=== PATIENT | female | born 1950 | race Caucasian/White ===

== ENCOUNTER 2017-06-07 10:58 | Emergency (ER) | payer OTHER ==
--- NOTE | 2017-06-07 12:48 | RAD ---
HISTORY: Pain in calf COMPARISONS: November 06, 2013 TECHNIQUE: Multiple transverse and longitudinal ultrasound images were obtained of the left lower extremity from the level of the common femoral vein inferiorly through to the infrapopliteal veins using grayscale, color Doppler, and spectral Doppler imaging with and without compression and with augmentation. Comparison images were obtained of the contralateral common femoral vein. FINDINGS: VEINS: The venous system of the left lower extremity is compressible throughout its course, with normal flow on color Doppler imaging and normal response to augmentation on spectral Doppler imaging. SOFT TISSUES: Unremarkable. OTHER FINDINGS: None. IMPRESSION: NO LEFT LOWER EXTREMITY DEEP VEIN THROMBOSIS
[2017-06-07 13:47] VITALS: BP 142/79
--- NOTE | 2017-06-07 16:20 | ED ---
Lower Extremity - HPI Summary HPI Summary: Patient presents to the ED with left calf pain. Hx of DVT in the left leg and states feels similar. Recent travel x 5 hours in airplane. Denies SOB. Denies other symptoms. Denies injury to the leg including trauma or straining. First noticed pain x 2 days ago as she was walking upstairs. Denies fevers, sweats or chills. Denies OCP use or smoking. Past DVT treated with warfarin. No DVT x over 1 year. - History of Current Complaint Chief Complaint: EDExtremityLower Stated Complaint: LT LEG PAIN Time Seen by Provider: 06/07/17 11:12 Hx Obtained From: Patient Mechanism Of Injury: Unknown Onset of Pain: Immediate Onset/Duration: Hours Severity Initially: Moderate Severity Currently: Moderate Pain Intensity: 3 Pain Scale Used: 0-10 Numeric Timing: Constant Location: Is Discrete @ - left calf pain Aggravating Factor(s): Standing, Ambulation Alleviating Factor(s): Rest Able to Bear Weight: No - Risk Factors Gout Risk Factors: Negative DVT Risk Factors: Negative Septic Arthritis Risk Factor: Negative - Allergies/Home Medications Allergies/Adverse Reactions: Allergies Allergy/AdvReac Type Severity Reaction Status Date / Time PABA Derivatives Allergy Rash And Verified 11/06/13 12:39 Itching PMH/Surg Hx/FS Hx/Imm Hx Previously Healthy: Yes Endocrine/Hematology History: Reports: Hx Diabetes - PT STATES SHE IS A BORDERLINE DIABETIC Cardiovascular History: Reports: Hx Hypertension, Other Cardiovascular Problems/ Disorders - OCC ANKLE SWELLING GI History: Reports: Hx Gastroesophageal Reflux Disease - TAKES OTC PEPCID Musculoskeletal History: Reports: Hx Arthritis - KNEES, Hx Rheumatoid Arthritis - PT HAS ARTHRITIS/ NOT SURE WHAT TYPE Sensory History: Reports: Hx Contacts or Glasses Denies: Hx Hearing Aid Opthamlomology History: Reports: Hx Contacts or Glasses Neurological History: Reports: Other Neuro Impairments/Disorders - POLYNEUROPATHY LOWER LEGS/ FEET - Surgical History Surgery Procedure, Year, and Place: 1971 [facility] - [place]. [facility] Hx Anesthesia Reactions: Yes - SEVERE N/V AFTER [facility] SURG Infectious Disease History: Yes Infectious Disease History: Denies: Traveled Outside the [place] in Last 30 Days - Social History Occupation: Unemployed Lives: With Family Alcohol Use: Occasionally Hx Substance Use: No Substance Use Type: Reports: None Hx Tobacco Use: No Smoking Status (MU): Never Smoked Tobacco Review of Systems Constitutional: Negative Negative: Fever, Chills, Fatigue Eyes: Negative Cardiovascular: Negative Negative: Shortness Of Breath, Cough Gastrointestinal: Negative Positive: no symptoms reported, see HPI Positive: Myalgia - right calf pain Skin: Negative Psychological: Normal All Other Systems Reviewed And Are Negative: Yes Physical Exam Triage Information Reviewed: Yes Vital Signs On Initial Exam: Initial Vitals Temp Pulse Resp BP Pulse Ox 97.7 F 89 19 160/85 100 06/07/17 11:04 06/07/17 11:04 06/07/17 11:04 06/07/17 11:04 06/07/17 11:04 Vital Signs Reviewed: Yes Appearance: Positive: Well-Appearing, Well-Nourished Skin: Positive: Warm, Skin Color Reflects Adequate Perfusion Head/Face: Positive: Normal Head/Face Inspection Eyes: Positive: EOMI, LOUISA, Conjunctiva Clear Respiratory/Lung Sounds: Positive: Clear to Auscultation, Breath Sounds Present Cardiovascular: Positive: Normal, RRR, Pulses are Symmetrical in both Upper and Lower Extremities Musculoskeletal: Positive: Pain @ - right calf and posterior knee Neurological: Positive: Speech Normal Psychiatric: Positive: Normal Diagnostics - Vital Signs Vital Signs Temp Pulse Resp BP Pulse Ox 06/07/17 13:46 79 17 142/79 94 06/07/17 13:00 79 93 06/07/17 12:34 79 94 06/07/17 12:00 81 148/87 93 06/07/17 11:44 84 94 06/07/17 11:42 144/87 06/07/17 11:04 97.7 F 89 19 160/85 100 - Laboratory Lab Statement: Any lab studies that have been ordered have been reviewed, and results considered in the medical decision making process. Lower Extremity Course/Dx - Course Course Of Treatment: right calf pain with posterior knee pain. history of blood clots. IMPRESSION: NO LEFT LOWER EXTREMITY DEEP VEIN THROMBOSIS. Currently takes advil at baseline. Patient will continue heat, ibuprofen and follow up with PCP. - Diagnoses Differential Diagnosis/HQI/PQRI: Positive: DVT Provider Diagnoses: Muscle strain of right lower leg Discharge - Discharge Plan Condition: Stable Disposition: HOME Prescriptions: Cyclobenzaprine TAB* [Flexeril TAB*] 10 mg PO BID PRN #10 tab PRN Reason: Pain Patient Education Materials: Muscle Strain (ED) Referrals: Jenni Woodson MD [Primary Care Provider] - Additional Instructions: Ibuprofen 600mg three times daily ELEVATE HEAT
== END 2017-06-07 13:47 | disposition home or self-care (01) ==
LOC: ED 10:58
DX: S86.911A Strain of unspecified muscle(s) and tendon(s) at lower leg level, right leg, initial encounter (principal); X58.XXXA Exposure to other specified factors, initial encounter; Y93.9 Activity, unspecified; Y92.9 Unspecified place or not applicable; Z86.718 Personal history of other venous thrombosis and embolism; R73.03 Prediabetes; I10 Essential (primary) hypertension; K21.9 Gastro-esophageal reflux disease without esophagitis; M17.0 Bilateral primary osteoarthritis of knee
CPT/HCPCS: 99281

== ENCOUNTER 2021-05-01 09:04 | Observation (INO) ==
[~2021-05-01 09:04] MED LIST: Buffered Lidocaine 1% SYRIN 1 ml INTRADERM ONE; Lactated Ringers 1000 ml BAG 1,000 ML IV SCH
[2021-05-01] MEDS ORDERED: Buffered Lidocaine 1% SYRIN 1 ml INTRADERM ONE (09:29)
[2021-05-01] MEDS ORDERED: Famotidine IV 10 MG/ML 2 ml VIAL (20 mg) ONE (09:29)
[2021-05-01] MEDS ORDERED: ceFAZolin 2 GM in NS PREMIX 2 GM/100 ML BAG IVPB ONE (09:29)
[2021-05-01] MEDS ORDERED: Ondansetron 4 mg VIAL 2 MG/ML 2 ml VIAL ONE (09:56)
[2021-05-01] MEDS ORDERED: Dexamethasone IV 4 MG/ML VIAL 1 ml VIAL ONE ×2 (09:56→10:38)
[2021-05-01] MEDS ORDERED: Propofol 10 MG/ML 20 ML BTL ONE ×3 (09:56→13:01)
[2021-05-01] MEDS ORDERED: Lidocaine 2% PF 5 ML VIAL ONE (09:57)
[2021-05-01] MEDS ORDERED: Phenylephrine IV 10 MG/ML 1 ml VIAL ONE (09:57)
[2021-05-01] MEDS ORDERED: ROPIVACAINE 5 MG/ML 30 ML BTL (0.5%) ONE ×2 (10:37→10:45)
[2021-05-01] MEDS ORDERED: Midazolam 2 mg/2 ml VIAL 1 mg/ml 2 ml VIAL (2 mg) ONE (10:38)
[2021-05-01] MEDS ORDERED: fentaNYL 100 mcg/2 ml 50 MCG/ML VIAL ONE ×4 (10:38→14:47)
[2021-05-01] MEDS ORDERED: diPHENhydraMINE 25 mg TAB PO PRN (12:25)
[2021-05-01] MEDS ORDERED: Magnesium Hydroxide LIQ 30 ML UDC PO PRN (12:25)
[2021-05-01] MEDS ORDERED: Ondansetron 4 mg VIAL 2 MG/ML 2 ml VIAL IV PRN ×2 (12:25→13:09)
[2021-05-01] MEDS ORDERED: Lactulose 30 ml UDC PO PRN (12:25)
[2021-05-01] MEDS ORDERED: Ondansetron ODT 4 mg TAB 4 MG TAB PO PRN (12:25)
[2021-05-01] MEDS ORDERED: Morphine 2 MG/ML SYRINGE IV PRN (12:25)
[2021-05-01] MEDS ORDERED: diPHENhydraMINE IV 50 MG/ML 1 ml VIAL (BENADRYL) IV PRN ×2 (12:25→13:09)
[2021-05-01] MEDS ORDERED: Naloxone 0.4 mg VIAL 0.4 mg/ml 1 ml VIAL IV PRN (13:09)
[2021-05-01] MEDS ORDERED: Metoclopramide 5 MG/ML VIAL (10 mg) IV PRN (13:09)
[2021-05-01] MEDS ORDERED: HYDROmorphone 1 MG/1 ML SYRINGE IV PRN (13:09)
[2021-05-01] MEDS ORDERED: HYDROcodone/ACETAMIN 5/325 mg TAB PO PRN (13:09)
[2021-05-01] MEDS: fentaNYL 100 mcg/2 ml 50 MCG/ML VIAL IV PRN ×4 (14:22→15:16)
[2021-05-01] MEDS ORDERED: HYDROcodone/ACETAMIN 5/325 mg TAB ONE (14:33)
[2021-05-01] MEDS ORDERED: Dextrose 50% Syringe 50 ml 25 GM/50 ML SYRINGE IV PUSH PRN (15:30)
[2021-05-01] MEDS: Lactated Ringers 1000 ml BAG 1,000 ML IV SCH (16:19)
[2021-05-01] MEDS ORDERED: Empaglifozin 10 mg TAB (NF) PO SCH (18:00)
[2021-05-01] MEDS: Magnesium Hydroxide LIQ 30 ML UDC PO SCH (19:46)
[2021-05-01] MEDS: ceFAZolin 1 GM ADVAN 1 GM in NS 0.9% 50 ML 50 ML IVPB SCH (19:47)
[2021-05-01] MEDS ORDERED: Glimepiride 2 mg TAB (NF) PO SCH (21:00)
[2021-05-02] MEDS: Lactated Ringers 1000 ml BAG 1,000 ML IV SCH (03:04)
[2021-05-02] MEDS: ceFAZolin 1 GM ADVAN 1 GM in NS 0.9% 50 ML 50 ML IVPB SCH ×2 (04:12→11:45)
[2021-05-02 06:46] LABS: Hematocrit 32 % (35-47); Hemoglobin 11.1 g/dL (12.0-16.0); Mean Platelet Volume 7.5 fL (7.4-10.4); Platelet Count 179 10^3/uL (150-450)
[2021-05-02 07:03] LABS: Calcium 8.7 mg/dL (8.6-10.3); EGFR African American 76.3 (>60); EGFR Non-African American 63.1 (>60); Potassium 4.6 mmol/L (3.5-5.0)
[2021-05-02] MEDS: Magnesium Hydroxide LIQ 30 ML UDC PO SCH (07:56)
[2021-05-02] MEDS ORDERED: Vitamin THERAPEUTIC TAB PO SCH (09:00)
[2021-05-02] MEDS ORDERED: Lactated Ringers 500 ml BAG 500 ML IV ONE (10:35)
[2021-05-02 13:15] VITALS: BP 106/60
== END 2021-05-02 15:45 | disposition home or self-care (01) ==
LOC: OR 09:04 → SSU 09:04
PROVIDERS: ADMIT Orthopaedic Surgery Adult Reconstructive Orthopaedic Surgery; ATTEND Orthopaedic Surgery Adult Reconstructive Orthopaedic Surgery

== ENCOUNTER 2024-07-06 05:40 | Observation (INO) ==
[~2024-07-06 05:40] MED LIST changes: -Buffered Lidocaine 1% SYRIN 1 ml INTRADERM ONE; +HYDROmorphone 1 MG/1 ML SYRINGE IV PRN; -Lactated Ringers 1000 ml BAG 1,000 ML IV SCH; +Naloxone 0.4 mg VIAL 0.4 mg/ml 1 ml VIAL IV PRN; +Ondansetron 4 mg VIAL 2 MG/ML 2 ml VIAL IV PRN; +ROPIVACAINE 5 MG/ML 30 ML BTL (0.5%) ONE
[2024-07-06] MEDS ORDERED: Tranexamic Acid 1 GM/100ML BAG 2,000 MG/200 ML BAG IV ONE (06:05)
[2024-07-06] MEDS ORDERED: ceFAZolin 2 GM PREMIX 2 GM/50 ML BAG ONE (06:05)
[2024-07-06 06:21] LABS: Rapid COVID-19 Molecular Undetected (Undetected)
[2024-07-06] MEDS: Buffered Lidocaine 1% SYRIN 1 ml INTRADERM ONE (06:35)
[2024-07-06] MEDS: Lactated Ringers 1000 ml BAG 1,000 ML IV SCH ×2 (06:35→12:05)
[2024-07-06] MEDS: Acetaminophen IV 1 GM/100ML 1,000 MG/100 ML BAG IV ONE (06:35)
[2024-07-06] MEDS: Scopolamine 1 mg/72hr PATCH TRANSDERM ONE (06:36)
[2024-07-06] MEDS ORDERED: ROPIVACAINE 5 MG/ML 30 ML BTL (0.5%) ONE (06:53)
[2024-07-06] MEDS ORDERED: Propofol 10 mg/ml 100 ML BTL 1,000 MG/100 ML BTL ONE (07:12)
[2024-07-06] MEDS ORDERED: Midazolam 2 mg/2 ml VIAL 1 mg/ml 2 ml VIAL (2 mg) ONE (07:18)
[2024-07-06] MEDS ORDERED: Morphine 2 MG/ML SYRINGE IV PRN (07:24)
[2024-07-06] MEDS ORDERED: Ondansetron ODT 4 mg TAB 4 MG TAB PO PRN (07:24)
[2024-07-06] MEDS ORDERED: Ondansetron 4 mg VIAL 2 MG/ML 2 ml VIAL IV PRN (07:24)
[2024-07-06] MEDS ORDERED: Magnesium Hydroxide LIQ 30 ML UDC PO PRN (07:24)
[2024-07-06] MEDS ORDERED: Calcium Carb (TUMS) 500 mg CHEW TAB PO PRN (07:24)
[2024-07-06] MEDS ORDERED: Lactulose 30 ml UDC PO PRN (07:24)
[2024-07-06] MEDS ORDERED: Glycopyrrolate IV 0.2 MG/ML 1 ML VIAL ONE (07:35)
[2024-07-06] MEDS ORDERED: KETAMINE HCL 10 MG/ML 20 ml VIAL (200 MG) ONE (07:42)
[2024-07-06] MEDS ORDERED: Ondansetron 4 mg VIAL 2 MG/ML 2 ml VIAL ONE (07:55)
[2024-07-06] MEDS ORDERED: Dexamethasone IV 4 MG/ML VIAL 1 ml VIAL ONE (07:55)
[2024-07-06] MEDS ORDERED: fentaNYL 100 mcg/2 ml 50 MCG/ML VIAL ONE (10:57)
[2024-07-06] MEDS: fentaNYL 100 mcg/2 ml 50 MCG/ML VIAL IV PRN (10:58)
[2024-07-06] MEDS: Magnesium Hydroxide LIQ 30 ML UDC PO SCH (12:20)
[2024-07-06] MEDS: Vitamin THERAPEUTIC TAB PO SCH (12:20)
[2024-07-06] MEDS: ceFAZolin 2 GM PREMIX 2 GM/50 ML BAG IV SCH (15:35)
[2024-07-06 17:40] VITALS: BP 119/67
== END 2024-07-06 19:08 | disposition home or self-care (01) ==
LOC: OR 05:40 → SSU 05:40
PROVIDERS: ADMIT Orthopaedic Surgery Adult Reconstructive Orthopaedic Surgery; ATTEND Orthopaedic Surgery Adult Reconstructive Orthopaedic Surgery